=== PATIENT | male | born 1970 | race Caucasian/White ===

== ENCOUNTER → 2024-08-22 | Outpatient (CLI) | payer OTHER ==
[2024-08-22 11:26] LABS: BASOPHILS ABSOLUTE AUTO 0.03 K/mm3 (0.00-0.23); BASOPHILS PERCENT AUTO 0 % (0-2); EOSINOPHILS ABSOLUTE AUTO 0.09 K/mm3 (0.00-0.68); EOSINOPHILS PERCENT AUTO 1 % (0-6); Hemoglobin 14.9 g/dL (13.5-17.5); IMMATURE GRAN ABSOLUTE AUTO 0.02 K/mm3 (0.00-0.10); IMMATURE GRAN PERCENT AUTO 0 % (0-1); LYMPHOCYTES ABSOLUTE AUTO 1.37 K/mm3 (0.84-5.20); LYMPHOCYTES PERCENT AUTO 16 % (21-46); MONOCYTES ABSOLUTE AUTO 0.67 K/mm3 (0.16-1.47); MONOCYTES PERCENT AUTO 8 % (4-13); Mean Corpuscular HGB 29.1 pg (26.0-34.0); Mean Corpuscular HGB Conc 33.1 g/dL (31.5-36.5); Mean Corpuscular Volume 88 fL (80-100); Mean Platelet Volume 11.1 fL (9.1-12.4); NEUTROPHILS ABSOLUTE AUTO 6.44 K/mm3 (1.96-9.15); NEUTROPHILS PERCENT AUTO 75 % (41-73); Platelet Count 306 K/mm3 (150-400); RDW Standard Deviation 38.5 fL (35.1-46.3); Red Blood Cell Count 5.12 M/mm3 (4.30-5.90); White Blood Cell Count 8.62 K/mm3 (4.00-11.30)
[2024-08-22 11:47] LABS: Albumin, Blood 4.4 g/dL (3.4-5.0); Albumin/Globulin Ratio 1.2 (0.8-1.8); Bilirubin, Total 0.5 mg/dL (0.1-1.0); Bun/Creatinine Ratio 16.8 (12.0-20.0); Calcium, Blood 9.5 mg/dL (8.5-10.1); Creatinine, Blood 1.13 mg/dL (0.60-1.20); Free Thyroxine 0.92 ng/dL (0.70-1.60); Globulin, Blood 3.8 g/dL (2.2-4.0); Magnesium, Blood 2.2 mg/dL (1.6-2.4); Potassium, Blood 4.6 mmol/L (3.5-5.5); Thyroid Stimulating Hormone 1.379 uIU/mL (0.360-4.800); Total Protein, Blood 8.2 g/dL (6.4-8.2)
== END ==
LOC: LAB 11:22 → LAB SHORT 11:22
PROVIDERS: Chiropractor
DX: E03.9 Hypothyroidism, unspecified (principal); R07.81 Pleurodynia
CPT/HCPCS: 80053; 83735; 84439; 84443; 84484; 85025; 85379

== ENCOUNTER 2024-12-28 03:00 | Day surgery (SDC) | payer OTHER ==
[2024-12-28] MEDS ORDERED: Lidocaine HCl 4% Cream 5 GM ONE (12:48)
== END 2024-12-28 23:00 | disposition home or self-care (01) ==
LOC: WOUND 03:00
DX: L02.31 Cutaneous abscess of buttock (principal); F41.9 Anxiety disorder, unspecified
CPT/HCPCS: A6213; A9270; G0463

== ENCOUNTER 2025-01-04 03:00 | Day surgery (SDC) | payer OTHER ==
[2025-01-04] MEDS ORDERED: Lidocaine HCl 4% Cream 5 GM ONE (13:18)
== END 2025-01-04 23:00 | disposition home or self-care (01) ==
LOC: WOUND 03:00
DX: L02.31 Cutaneous abscess of buttock (principal); S71.001D Unspecified open wound, right hip, subsequent encounter; X58.XXXD Exposure to other specified factors, subsequent encounter; F41.9 Anxiety disorder, unspecified
CPT/HCPCS: A6213; A9270; G0463

== ENCOUNTER 2025-05-16 15:05 | Emergency (ER) | payer OTHER ==
[~2025-05-16] VITALS: Ht 175.3 cm; Wt 72.6 kg
[2025-05-16] MEDS ORDERED: FentaNYL Citrate 50 MCG/ML 2 ML Injection IV ONE (15:15)
[2025-05-16] MEDS ORDERED: NS 1,000 ML IV SCH (15:15)
[2025-05-16] MEDS ORDERED: CeFAZolin Sodium 1,000 MG in NS 50 ML IV ONE (15:50)
[2025-05-16] MEDS ORDERED: CEPH500 PO (16:46)
[2025-05-16] MEDS ORDERED: IBUP800 PO (16:46)
[2025-05-16] MEDS ORDERED: HYDROCODONE-AC1 EA10 PO (16:46)
== END 2025-05-16 17:17 | disposition home or self-care (01) ==
LOC: ER 15:05
DX: S62.357B Nondisplaced fracture of shaft of fifth metacarpal bone, left hand, initial encounter for open fracture (principal); S66.922A Laceration of unspecified muscle, fascia and tendon at wrist and hand level, left hand, initial encounter; W31.1XXA Contact with metalworking machines, initial encounter
CPT/HCPCS: 12002; 73130; 90471; 90715; 96374-59; 96375-59; 99283-25; J0690; J3010; J7030

== ENCOUNTER 2025-05-30 06:11 | Day surgery (SDC) | payer OTHER ==
[~2025-05-30] VITALS: Ht 175.3 cm; Wt 79.8 kg
[~2025-05-30 06:11] MED LIST: CEPH500 PO; HYDROCODONE-AC1 EA10 PO; IBUP800 PO
[2025-05-30] MEDS ORDERED: CeFAZolin Sodium 2,000 MG VIAL ONE (06:24)
[2025-05-30] MEDS ORDERED: ATOM40 PO (06:40)
[2025-05-30] MEDS ORDERED: EUTHYROX50 MC1 PO (06:41)
[2025-05-30] MEDS ORDERED: Cyclobenzaprine5 MG (06:41)
[2025-05-30] MEDS ORDERED: BUPROPION XL150 M1 PO (06:41)
[2025-05-30] MEDS ORDERED: Lidocaine 1%-Epineph 1:100000 20 ML MDV ONE (06:54)
--- NOTE | 2025-05-30 06:58 | NUR ---
05/30/25 0658 Annalise Herman PT DRANK 8OZ OF WATER WITH A LIQUID IV PACKET IN IT AT 0600. TOMASA INFORMED AND STATED SURGERY WILL BE POSTPONED BY 30 MINUTES DUE TO THIS.
[2025-05-30] MEDS ORDERED: Ondansetron HCl 2 MG / ML 2ML Vial ONE ×2 (08:08→08:36)
[2025-05-30] MEDS ORDERED: Dexamethasone Sod Phos 10 MG/ML 1ML VIAL ONE ×2 (08:08→08:36)
[2025-05-30] MEDS ORDERED: FentaNYL Citrate 50 MCG/ML 2 ML Injection ONE ×3 (08:16→09:26)
--- NOTE | 2025-05-30 09:49 | NUR ---
05/30/25 0949 Nruy Payan 0934: 25 MCG FENTANYL GIVEN FOR PAIN PER ORDERS. 0934: FINGERS OF L HAND THAT ARE VISIBLE AROUND DRESSING ARE WARM, PINK, AND CAPILLARY REFILL IS LESS THAN 3 SECONDS. 0945: PATIENT UP IN CHAIR AT 0945, WITH L ARM ELEVATED ON PILLOW, ICE PACK IN PLACE. PATIENT DRINKING CRANBERRY JUICE.
[2025-05-30] MEDS ORDERED: HYDROcodone 5-APAP 325 TAB ONE (09:53)
[2025-05-30] MEDS ORDERED: Ketorolac Tromethamine 30mg Vial IV ONE (18:10)
== END 2025-05-30 10:12 | disposition home or self-care (01) ==
LOC: ORSCSDS 06:11 → ORD 08:30 → ORSCSDS 10:12
PROVIDERS: Orthopaedic Surgery
PROC: 0LQ80ZZ Repair Left Hand Tendon, Open Approach (ICD-10-PCS; principal; 2025-05-30 07:30)
PROC: 0PSQ04Z Reposition Left Metacarpal with Internal Fixation Device, Open Approach (ICD-10-PCS; principal; 2025-05-30 07:30)
DX: S62.307B Unspecified fracture of fifth metacarpal bone, left hand, initial encounter for open fracture (principal); S66.397A Other injury of extensor muscle, fascia and tendon of left little finger at wrist and hand level, initial encounter; S66.395A Other injury of extensor muscle, fascia and tendon of left ring finger at wrist and hand level, initial encounter; S64.40XA Injury of digital nerve of unspecified finger, initial encounter; W31.2XXA Contact with powered woodworking and forming machines, initial encounter; Z87.891 Personal history of nicotine dependence; Z79.899 Other long term (current) drug therapy; E78.00 Pure hypercholesterolemia, unspecified; E03.9 Hypothyroidism, unspecified; F90.9 Attention-deficit hyperactivity disorder, unspecified type
CPT/HCPCS: A9270; C1713; C1776; C1889; J0690; J1100; J1885; J2405; J2704; J3010; J7120